=== PATIENT | female | born 1995 | race Caucasian/White ===

== ENCOUNTER 2024-08-18 13:26 | Emergency (ER) | payer OTHER ==
[~2024-08-18] VITALS: Ht 172.7 cm; Wt 121.3 kg
[2024-08-18] MEDS ORDERED: LO LTAB PO (13:36)
[2024-08-18 14:49] LABS: BASO # 0.2 10^3/uL (0.0-0.2); BASO % 1.3 % (0.0-1.0); EOS # 1.8 10^3/uL (0.0-0.5); EOS % 12.5 % (0.0-3.0); HEMATOCRIT 42.7 % (36.0-47.0); HEMOGLOBIN 14.1 g/dl (12.0-15.5); LYMPH # 2.6 10^3/uL (1.5-5.0); LYMPH % 17.8 % (24.0-44.0); MEAN CORPUSCULAR HEMOGLOBIN 27.6 pg (27.0-33.0); MEAN CORPUSCULAR VOLUME 83.7 fl (80.0-96.0); MONO # 0.9 10^3/uL (0.0-0.8); MONO % 6.1 % (2.0-8.0); NEUTROPHILS # 8.9 10^3/uL (1.5-8.5); PLATELET COUNT, AUTOMATED 377 10^3/uL (150-450); WHITE BLOOD COUNT 14.3 10^3/uL (4.0-10.0)
[2024-08-18 15:13] LABS: BLOOD UREA NITROGEN 9 MG/DL (9-23); CARBON DIOXIDE LEVEL 23 MMOL/L (20-31); CHLORIDE LEVEL 101 MMOL/L (98-107); CREATININE FOR GFR 0.62 MG/DL (0.55-1.30); GLOMERULAR FILTRATION RATE > 60.0 (>60); GLUCOSE, FASTING 94 MG/DL (60-100); POTASSIUM SERUM 4.4 MMOL/L (3.5-5.1); SODIUM LEVEL 136 MMOL/L (136-145)
[2024-08-18 15:27] LABS: HCG, SERUM QUALITATIVE NEGATIVE (NEGATIVE)
[2024-08-18] MEDS: IPRATROPIUM 0.5MG/ALBUTEROL 2.5MG INH SOL UD 3ML (DUONEB) NEB SCH (15:42)
[2024-08-18] MEDS ORDERED: methylPREDNISolone 125MG 2ML VIAL IM ONE (17:20)
[2024-08-18] MEDS: ALBUTEROL SULFATE 2.5MG/0.5ML INH NEB SOLN NEB ONE (17:36)
[2024-08-18] MEDS ORDERED: ISOVUE-370 76% 100ML VIAL As Ordered ONE (17:43)
[2024-08-18] MEDS: methylPREDNISolone 125MG 2ML VIAL IV ONE (18:06)
[2024-08-18] MEDS ORDERED: PRED20TA PO (18:52)
[2024-08-18] MEDS ORDERED: BENZ200C70 PO (18:52)
[2024-08-18] MEDS ORDERED: VENTAER INH (18:52)
[2024-08-18 19:00] VITALS: BP 143/83; TEMP 98; O2SAT 94
== END 2024-08-18 19:02 | disposition home or self-care (01) ==
LOC: M ED 13:26
DX: J20.9 Acute bronchitis, unspecified (principal); J45.909 Unspecified asthma, uncomplicated; Z91.048 Other nonmedicinal substance allergy status; Z79.52 Long term (current) use of systemic steroids; Z79.899 Other long term (current) drug therapy
CPT/HCPCS: 71046; 71275; 80048; 84703; 85025; 85379; 87486; 87581; 87633; 87798; 94640; 96374; 99284; J2919; Q9967